=== PATIENT | female | born 1995 | race American Indian/Alaskan Native ===

== ENCOUNTER 2019-08-01 18:23 | Emergency (ER) | payer SELFPAY ==
--- NOTE | 2019-08-01 20:52 | Event Note ---
ED Screening Note Date of service: 08/01/19 Time: 20:47 ED Screening Note: Pt presents abscess to left axilla. She states it started as small bump over 1 week ago and since then it has gotten bigger and more painful and last night started draining. She is a Diabetic Insulin dependent. Denies fever. No hx of MRSA. This initial assessment/diagnostic orders/clinical plan/treatment(s) is/are subject to change based on patients health status, clinical progression and re- assessment by fellow clinical providers in the ED. Further treatment and workup at subsequent clinical providers discretion. Patient/guardian urged not to elope from the ED as their condition may be serious if not clinically assessed and managed. Initial orders include: CBC CMP Saline Lock I&D Wound culture
[2019-08-01 21:18] LABS: Basophils # (Auto) 0.1 K/mm3 (0.0-0.1); Basophils % (Auto) 0.8 % (0.0-1.8); Eosinophils # (Auto) 0.2 K/mm3 (0.0-0.4); Eosinophils % (Auto) 1.3 % (0.0-4.3); Hematocrit 34.4 % (30.3-42.9); Hemoglobin 10.7 gm/dl (10.1-14.3); Lymphocytes # (Auto) 2.6 K/mm3 (1.2-5.4); Lymphocytes % (Auto) 21.3 % (13.4-35.0); Mean Corpuscular HGB Conc 31 % (30-34); Mean Corpuscular Volume 72 fl (79-97); Monocytes # (Auto) 1.1 K/mm3 (0.0-0.8); Monocytes % (Auto) 9.2 % (0.0-7.3); Platelet Count 377 K/mm3 (140-440); Red Cell Distribution Width 16.1 % (13.2-15.2)
[2019-08-01 21:44] LABS: Alanine Aminotransferase 9 units/L (7-56); Albumin 3.5 g/dL (3.9-5); BUN/Creatinine Ratio 22; Blood Urea Nitrogen 11 mg/dL (7-17); Calcium 9.5 mg/dL (8.4-10.2); Hemolysis Index 17
[2019-08-01] MEDS ORDERED: LIDOCAINE-MPF (1%) 10 MG/1 ML VIAL 5 ML INFILTRATI ONE (22:16)
[2019-08-01] MEDS ORDERED: SULFAMETHOXAZOLE/TRIMETHOPRIM 800/160MG DS TAB PO ONE (22:16)
[2019-08-01] MEDS ORDERED: CLINDAMYCIN 300 MG CAP PO ONE (22:16)
[2019-08-01] MEDS ORDERED: IBUPROFEN 600 MG TAB PO ONE (22:16)
[2019-08-01] MEDS ORDERED: ONDANSETRON 4 MG ODT TAB PO ONE (22:16)
[2019-08-01] MEDS ORDERED: oxyCODONE /ACETAMINOPHEN 5-325MG TAB PO ONE (22:16)
--- NOTE | 2019-08-02 00:43 | Emergency Department Report ---
ED General Adult HPI - General Chief complaint: Skin/Abscess/Foreign Body Stated complaint: L ARM INFECTED Time Seen by Provider: 08/01/19 20:47 Source: patient Mode of arrival: Ambulatory Limitations: No Limitations - History of Present Illness Initial comments: The patient is a 24-year-old -[place] female with no past medical history who presents to the ED with complaint of acute onset persistent severely painful swollen erythematous maculopapular rash with fluctuance on the left axilla for the last 2 weeks. Patient states that the pain, redness and swelling got worse the last 2 days. Patient denies fever, chills, nausea, vomiting, diz ziness, headache, chest pain, shortness of breath, change in vision, abdominal pain, numbness and tingling of left or syncope. MD Complaint: left axilla swollen painful rash -: Sudden, week(s) (2) Location: left (axilla), upper extremity (left axilla) Radiation: non-radiation Severity scale (0 -10): 8 Quality: aching, sharp, constant Consistency: constant Improves with: none Worsens with: none Associated Symptoms: denies other symptoms. denies: chest pain, cough, diaphoresis, fever/chills, headaches, loss of appetite, malaise, nausea/vomiting, rash, seizure, shortness of breath, syncope, weakness Treatments Prior to Arrival: none - Related Data Previous Rx's Medication Instructions Recorded Last Taken Type Acetaminophen/Codeine [Tylenol 1 tab PO Q6H PRN #12 tab 08/02/19 Unknown Rx /Codeine # 3 tab] Clindamycin [Clindamycin CAP] 300 mg PO Q8HR #60 capsule 08/02/19 Unknown Rx Ibuprofen [Motrin] 800 mg PO Q8HR PRN #30 tablet 08/02/19 Unknown Rx Ondansetron [Zofran Odt] 4 mg PO Q6HR PRN #15 tab.rapdis 08/02/19 Unknown Rx Sulfamethoxazole/Trimethoprim 1 each PO Q12H #20 tablet 08/02/19 Unknown Rx [Bactrim DS TAB] Allergies Allergy/AdvReac Type Severity Reaction Status Date / Time Penicillins Allergy Unknown Verified 08/01/19 18:51 ED Review of Systems ROS: Stated complaint: L ARM INFECTED Other details as noted in HPI Constitutional: denies: chills, fever Eyes: denies: eye pain, eye discharge, vision change ENT: denies: ear pain, throat pain Respiratory: denies: cough, shortness of breath, wheezing Cardiovascular: denies: chest pain, palpitations Endocrine: no symptoms reported Gastrointestinal: denies: abdominal pain, nausea, diarrhea Genitourinary: denies: urgency, dysuria, discharge Musculoskeletal: arthralgia (left axilla and arm pain due to erythematous rash). denies: back pain, joint swelling Skin: rash (Swollen erythematous painful maculopapular fluctuant rash on left axilla). denies: lesions Neurological: denies: headache, weakness, paresthesias Psychiatric: denies: anxiety, depression Hematological/Lymphatic: denies: easy bleeding, easy bruising ED Past Medical Hx - Past Medical History Previous Medical History?: No - Surgical History Past Surgical History?: Yes Additional Surgical History: I&D - Social History Smoking Status: Never Smoker Substance Use Type: None - Medications Home Medications: Home Medications Medication Instructions Recorded Confirmed Last Taken Type Acetaminophen/Codeine [Tylenol 1 tab PO Q6H PRN #12 tab 08/02/19 Unknown Rx /Codeine # 3 tab] Clindamycin [Clindamycin CAP] 300 mg PO Q8HR #60 capsule 08/02/19 Unknown Rx Ibuprofen [Motrin] 800 mg PO Q8HR PRN #30 tablet 08/02/19 Unknown Rx Ondansetron [Zofran Odt] 4 mg PO Q6HR PRN #15 tab.rapdis 08/02/19 Unknown Rx Sulfamethoxazole/Trimethoprim 1 each PO Q12H #20 tablet 08/02/19 Unknown Rx [Bactrim DS TAB] ED Physical Exam - General Limitations: No Limitations General appearance: alert, in no apparent distress - Head Head exam: Present: atraumatic, normocephalic, normal inspection - Eye Eye exam: Present: normal appearance, PERRL, EOMI Pupils: Present: normal accommodation - ENT ENT exam: Present: normal exam, normal orophraynx, mucous membranes moist, TM's normal bilaterally, normal external ear exam - Neck Neck exam: Present: normal inspection, full ROM - Respiratory Respiratory exam: Present: normal lung sounds bilaterally. Absent: respiratory distress, wheezes, rales, rhonchi, chest wall tenderness, accessory muscle use, prolonged expiratory - Cardiovascular Cardiovascular Exam: Present: normal rhythm, tachycardia, normal heart sounds. Absent: systolic murmur, diastolic murmur, rubs, gallop - GI/Abdominal GI/Abdominal exam: Present: soft, normal bowel sounds. Absent: distended, tenderness, guarding, rebound, hyperactive bowel sounds, hypoactive bowel sounds, bruit, pulsatile mass - Extremities Exam Extremities exam: Present: normal inspection, full ROM, tenderness (left arm pain due to swollen tender erythematous maculopapular rash on left axilla), normal capillary refill - Back Exam Back exam: Present: normal inspection, full ROM. Absent: CVA tenderness (L), paraspinal tenderness, vertebral tenderness - Neurological Exam Neurological exam: Present: alert, oriented X3, CN II-XII intact, normal gait, reflexes normal - Psychiatric Psychiatric exam: Present: normal affect, normal mood - Skin Skin exam: Present: warm, dry, intact, normal color, rash (Swollen erythematous maculopapular severely tender fluctuant rash on left axilla), erythema ED Course Vital Signs 08/01/19 08/01/19 08/02/19 18:53 22:27 01:25 Temperature 98.6 F 98.3 F Pulse Rate 120 H 101 H Respiratory 16 18 18 Rate Blood Pressure 131/78 Blood Pressure 107/63 [Left] O2 Sat by Pulse 99 97 Oximetry - Reevaluation(s) Reevaluation #1: 08/02/19 00:45 Patient is a 24-year-old female who presented to the ED with painful swollen erythematous maculopapular fluctuant rash on left axilla for 2 weeks, worse the last 4 days. In the ED, patient is alert and oriented 3 and is not in distress however tachycardic in triage and appears to be in severe pain. Lab test results were reviewed and shows acute leukocytosis of 12,200 with hyperglycemia over 303 mg/dL. Patient was treated for pain in the ED also received initial oral antibiotics and ED. The left axilla swollen fluctuant rash was cleaned thoroughly and incised and drained per protocol. Patient tolerated the procedure well. The wound was debrided thoroughly and iodoform packing applied to the wound. The wound was then dressed appropriately and the patient was discharged home on pain medications and antibiotics. Patient is advised to return to the emergency Department in 2 days for wound recheck and packing material removal. Patient was otherwise advised to return to the ED immediately if symptoms get worse, otherwise follow-up with her primary care physician in 7-10 days for reevaluation. 08/02/19 00:49 - I & D Left Arm Type of Procedure: Simple Site: Left axilla Blade Size: 11 I & D Procedure: betadine prep, sterile drapes applied, sterile dressing applied, gauze wick placed Progress: Patient procedure well after the area was cleaned and local anesthetic applied. The wound was cleaned and debrided thoroughly and iodoform packing material applied. The wound was dressed appropriately and patient is sent home on pain medications and antibiotics and advised to follow up with her primary care physician in 7-10 days for reevaluation or return to the ED immediately if symptoms get worse. Patient was otherwise advised to return to the ED in 2 days for wound recheck and packing material removal. ED Medical Decision Making - Lab Data Result diagrams: 08/01/19 21:04 08/01/19 21:04 - Medical Decision Making Patient is a 24-year-old female who presented to the ED with painful swollen erythematous maculopapular fluctuant rash on left axilla for 2 weeks, worse the last 4 days. In the ED, patient is alert and oriented 3 and is not in distress however tachycardic in triage and appears to be in severe pain. Patient was treated for pain in the ED also received initial oral antibiotics and ED. lab tests results were reviewed and show acute leukocytosis of 12,200 and hyperglycemia 303 mg/dL. The left axilla swollen fluctuant rash was cleaned thoroughly and incised and drained per protocol. Patient tolerated the procedure well. The wound was debrided thoroughly and iodoform packing applied to the wound. The wound was then dressed appropriately and the patient was discharged home on pain medications and antibiotics. Patient is advised to return to the emergency Department in 2 days for wound recheck and packing material removal. The vital signs were rechecked and tachycardia resolved prior to patient being discharged. Patient was otherwise advised to return to the ED immediately if symptoms get worse, otherwise follow-up with her primary care physician in 7-10 days for reevaluation. - Differential Diagnosis Cutaneous abscess; Folliculitis; Cellulitis Critical care attestation.: If time is entered above; I have spent that time in minutes in the direct care of this critically ill patient, excluding procedure time. ED Disposition Clinical Impression: Cutaneous abscess of left axilla, Cellulitis of left axilla Disposition: TO HOME OR SELFCARE Is pt being admited?: No Does the pt Need Aspirin: No Condition: Stable Instructions: Cellulitis (ED), Folliculitis (ED), Abscess (ED) Additional Instructions: Take medications with food, drink plenty of fluids and follow-up with your primary care physician in 7-10 days for reevaluation. Return to the ED immediately if symptoms get worse. Otherwise return to the ED in 2 days for wound recheck and packing material removed. Prescriptions: Sulfamethoxazole/Trimethoprim [Bactrim DS TAB] 1 each PO Q12H #20 tablet Clindamycin [Clindamycin CAP] 300 mg PO Q8HR #60 capsule Ibuprofen [Motrin] 800 mg PO Q8HR PRN #30 tablet PRN Reason: Pain , Severe (7-10) Acetaminophen/Codeine [Tylenol /Codeine # 3 tab] 1 tab PO Q6H PRN #12 tab PRN Reason: Pain , Severe (7-10) Ondansetron [Zofran Odt] 4 mg PO Q6HR PRN #15 tab.rapdis PRN Reason: Nausea Referrals: PRIMARY CARE,MD [Primary Care Provider] - 3-5 Days Time of Disposition: 00:53 Print Language: GUATEMALAN
[2019-08-02 01:27] VITALS: BP 107/63
== END 2019-08-02 01:45 | disposition home or self-care (01) ==
LOC: ED 18:23
DX: L02.412 Cutaneous abscess of left axilla (principal); L03.112 Cellulitis of left axilla; Z79.899 Other long term (current) drug therapy; Z88.0 Allergy status to penicillin
CPT/HCPCS: 36415; 80053; 85025; Q0162

== ENCOUNTER 2019-08-04 16:16 | Emergency (ER) | payer SELFPAY ==
[2019-08-04 17:11] VITALS: BP 138/94
--- NOTE | 2019-08-04 19:00 | Emergency Department Report ---
- General Chief Complaint: Laceration/Recheck/Suture Stated Complaint: PACKING Time Seen by Provider: 08/04/19 18:54 Source: patient Mode of arrival: Ambulatory Limitations: No Limitations - History of Present Illness Initial Comments: pt is a 24 y/o aaf who presents for wound check , pt is s/p I&D Left axillary absces, there is no fever or chills no symptoms of infection. Onset/Timin -: days(s) Location: other (left axillary) Place: home Patient Tetanus UTD: Yes Associated Symptoms: pain - Related Data Previous Rx's Medication Instructions Recorded Last Taken Type Acetaminophen/Codeine [Tylenol 1 tab PO Q6H PRN #12 tab 08/02/19 Unknown Rx /Codeine # 3 tab] Clindamycin [Clindamycin CAP] 300 mg PO Q8HR #60 capsule 08/02/19 Unknown Rx Ibuprofen [Motrin] 800 mg PO Q8HR PRN #30 tablet 08/02/19 Unknown Rx Ondansetron [Zofran Odt] 4 mg PO Q6HR PRN #15 tab.rapdis 08/02/19 Unknown Rx Sulfamethoxazole/Trimethoprim 1 each PO Q12H #20 tablet 08/02/19 Unknown Rx [Bactrim DS TAB] Allergies Allergy/AdvReac Type Severity Reaction Status Date / Time Penicillins Allergy Unknown Verified 08/01/19 18:51 ED Review of Systems ROS: Stated complaint: PACKING Other details as noted in HPI Constitutional: denies: chills, fever Eyes: denies: eye pain, eye discharge, vision change ENT: denies: ear pain, throat pain Respiratory: denies: cough, shortness of breath, wheezing Cardiovascular: denies: chest pain, palpitations Endocrine: no symptoms reported Gastrointestinal: denies: abdominal pain, nausea, diarrhea Genitourinary: denies: urgency, dysuria, discharge Musculoskeletal: denies: back pain, joint swelling, arthralgia Skin: lesions (left axillay abscess site ). denies: rash Neurological: denies: headache, weakness, paresthesias Psychiatric: denies: anxiety, depression Hematological/Lymphatic: denies: easy bleeding, easy bruising ED Past Medical Hx - Past Medical History Previous Medical History?: No - Surgical History Past Surgical History?: No Additional Surgical History: I&D - Social History Smoking Status: Never Smoker Substance Use Type: None - Medications Home Medications: Home Medications Medication Instructions Recorded Confirmed Last Taken Type Acetaminophen/Codeine [Tylenol 1 tab PO Q6H PRN #12 tab 08/02/19 Unknown Rx /Codeine # 3 tab] Clindamycin [Clindamycin CAP] 300 mg PO Q8HR #60 capsule 08/02/19 Unknown Rx Ibuprofen [Motrin] 800 mg PO Q8HR PRN #30 tablet 08/02/19 Unknown Rx Ondansetron [Zofran Odt] 4 mg PO Q6HR PRN #15 tab.rapdis 08/02/19 Unknown Rx Sulfamethoxazole/Trimethoprim 1 each PO Q12H #20 tablet 08/02/19 Unknown Rx [Bactrim DS TAB] ED Physical Exam - General Limitations: No Limitations General appearance: alert, in no apparent distress - Head Head exam: Present: atraumatic, normocephalic - Eye Eye exam: Present: normal appearance, PERRL, EOMI Pupils: Present: normal accommodation - ENT ENT exam: Present: mucous membranes moist - Neck Neck exam: Present: normal inspection, full ROM. Absent: lymphadenopathy - Respiratory Respiratory exam: Present: normal lung sounds bilaterally. Absent: respiratory distress - Cardiovascular Cardiovascular Exam: Present: regular rate, normal rhythm. Absent: systolic murmur, diastolic murmur, rubs, gallop - GI/Abdominal GI/Abdominal exam: Present: soft, normal bowel sounds. Absent: distended, tenderness - Rectal Rectal exam: Present: deferred - Extremities Exam Extremities exam: Present: normal inspection, full ROM. Absent: tenderness - Back Exam Back exam: Present: normal inspection, full ROM. Absent: tenderness - Neurological Exam Neurological exam: Present: alert, oriented X3, CN II-XII intact, normal gait - Psychiatric Psychiatric exam: Present: normal affect, normal mood - Skin Skin exam: Present: warm, dry, normal color, other (abscess site no symptoms of infection no drainage no fever mild erythema ). Absent: rash ED Course Vital Signs 08/04/19 17:09 Temperature 98.9 F Pulse Rate 100 H Respiratory 18 Rate Blood Pressure 138/94 O2 Sat by Pulse 100 Oximetry ED Medical Decision Making - Medical Decision Making dressing changed no symptoms of infection, pt given wound care instructions, pt will follow up with pcp in 2-3 days and as needed, continue abx. Critical care attestation.: If time is entered above; I have spent that time in minutes in the direct care of this critically ill patient, excluding procedure time. ED Disposition Clinical Impression: Visit for wound check Disposition: TO HOME OR SELFCARE Is pt being admited?: No Does the pt Need Aspirin: No Condition: Stable Instructions: Incision and Drainage (ED) Referrals: [facility] [Outside] - 3-5 Days Forms: Work/School Release Form(ED) Time of Disposition: 19:01
== END 2019-08-04 19:00 | disposition left against medical advice (07) ==
LOC: ED 16:16
DX: L02.412 Cutaneous abscess of left axilla (principal); Z79.899 Other long term (current) drug therapy; Z88.0 Allergy status to penicillin

== ENCOUNTER 2019-09-16 09:24 | Emergency (ER) | payer SELFPAY ==
[2019-09-16 09:32] VITALS: BP 113/78
--- NOTE | 2019-09-16 10:52 | Emergency Department Report ---
- General Chief Complaint: Upper Respiratory Infection Stated Complaint: FLU LIKE SYMPTOMS Time Seen by Provider: 09/16/19 10:18 Source: patient Mode of arrival: Ambulatory Limitations: No Limitations - History of Present Illness Initial Comments: 24-year-old Afro-Mac[place] female with past medical history of diabetes is was department complaining of coryza and less symptoms for the last 1 week not responding to TheraFlu. She has coughed and congestion and coryza noted reports no hemoptysis, hematemesis nor hematochezia no hematuria or dysuria no abdominal pain or chest pain. States she's been out of her insulin for the last 2 or 3 days and has just relocated from [place] Complaint: cough, sore throat, rhinorrhea, nasal congestion -: Gradual, week(s) (1) Severity: mild Quality: dull Consistency: constant Worsens With: nothing Associated Symptoms: rhinorrhea, nasal congestion, cough. denies: myalgias, diaphoresis, chest pain, shortness of breath, right sweats, weight loss, epistaxis, hoarseness Treatments Prior to Arrival: none - Related Data Previous Rx's Medication Instructions Recorded Last Taken Type Acetaminophen/Codeine [Tylenol 1 tab PO Q6H PRN #12 tab 08/02/19 Unknown Rx /Codeine # 3 tab] Clindamycin [Clindamycin CAP] 300 mg PO Q8HR #60 capsule 08/02/19 Unknown Rx Ibuprofen [Motrin] 800 mg PO Q8HR PRN #30 tablet 08/02/19 Unknown Rx Ondansetron [Zofran Odt] 4 mg PO Q6HR PRN #15 tab.rapdis 08/02/19 Unknown Rx Sulfamethoxazole/Trimethoprim 1 each PO Q12H #20 tablet 08/02/19 Unknown Rx [Bactrim DS TAB] Azithromycin [Zithromax] 500 mg PO QDAY #3 tablet 09/16/19 Unknown Rx Insulin Glargine [Lantus VIAL] 10 unit SUB-Q QHS #10 ml 09/16/19 Unknown Rx guaiFENesin/CODEINE [Robitussin AC] 5 ml PO Q6H PRN #120 ml 09/16/19 Unknown Rx Allergies Allergy/AdvReac Type Severity Reaction Status Date / Time Penicillins Allergy Unknown Verified 08/01/19 18:51 ED Review of Systems ROS: Stated complaint: FLU LIKE SYMPTOMS Other details as noted in HPI Comment: All other systems reviewed and negative ED Past Medical Hx - Past Medical History Previous Medical History?: Yes Hx Diabetes: Yes Additional medical history: Boils - Surgical History Additional Surgical History: I&D - Social History Smoking Status: Never Smoker Substance Use Type: Non Opiate Pain, Prescribed - Medications Home Medications: Home Medications Medication Instructions Recorded Confirmed Last Taken Type Acetaminophen/Codeine [Tylenol 1 tab PO Q6H PRN #12 tab 08/02/19 Unknown Rx /Codeine # 3 tab] Clindamycin [Clindamycin CAP] 300 mg PO Q8HR #60 capsule 08/02/19 Unknown Rx Ibuprofen [Motrin] 800 mg PO Q8HR PRN #30 tablet 08/02/19 Unknown Rx Ondansetron [Zofran Odt] 4 mg PO Q6HR PRN #15 tab.rapdis 08/02/19 Unknown Rx Sulfamethoxazole/Trimethoprim 1 each PO Q12H #20 tablet 08/02/19 Unknown Rx [Bactrim DS TAB] Azithromycin [Zithromax] 500 mg PO QDAY #3 tablet 09/16/19 Unknown Rx Insulin Glargine [Lantus VIAL] 10 unit SUB-Q QHS #10 ml 09/16/19 Unknown Rx guaiFENesin/CODEINE [Robitussin AC] 5 ml PO Q6H PRN #120 ml 09/16/19 Unknown Rx ED Physical Exam - General Limitations: No Limitations General appearance: alert, in no apparent distress - Head Head exam: Present: atraumatic, normocephalic - Eye Eye exam: Present: normal appearance, PERRL, EOMI Pupils: Present: normal accommodation - ENT ENT exam: Present: normal exam, normal orophraynx, mucous membranes moist, TM's normal bilaterally - Neck Neck exam: Present: normal inspection, full ROM - Respiratory Respiratory exam: Present: normal lung sounds bilaterally. Absent: respiratory distress, wheezes, rales, rhonchi, chest wall tenderness, accessory muscle use, decreased breath sounds - Cardiovascular Cardiovascular Exam: Present: regular rate, normal rhythm. Absent: bradycardia, tachycardia, systolic murmur, diastolic murmur, rubs, gallop - GI/Abdominal GI/Abdominal exam: Present: soft, normal bowel sounds. Absent: tenderness, guarding, rebound, hyperactive bowel sounds, hypoactive bowel sounds, organomegaly, mass - Extremities Exam Extremities exam: Present: normal inspection, normal capillary refill - Back Exam Back exam: Present: normal inspection. Absent: CVA tenderness (R), CVA tenderness (L) - Neurological Exam Neurological exam: Present: alert, oriented X3, CN II-XII intact, normal gait, motor sensory deficit - Psychiatric Psychiatric exam: Present: normal affect, normal mood. Absent: anxious, flat affect, manic - Skin Skin exam: Present: warm, dry, intact, normal color. Absent: rash, cyanosis, diaphoretic, petechiae, pallor, abrasion ED Course Vital Signs 09/16/19 09:29 Temperature 98.9 F Pulse Rate 94 H Respiratory 20 Rate Blood Pressure 113/78 O2 Sat by Pulse 97 Oximetry Critical care attestation.: If time is entered above; I have spent that time in minutes in the direct care of this critically ill patient, excluding procedure time. ED Disposition Clinical Impression: Cough, Chest congestion, Coryza, Medication refill Disposition: TO HOME OR SELFCARE Is pt being admited?: No Does the pt Need Aspirin: No Condition: Stable Instructions: Diabetes Mellitus Type 2 in Adults (ED), Cold Symptoms (ED), Acute Cough (ED) Prescriptions: Insulin Glargine [Lantus VIAL] 10 unit SUB-Q QHS #10 ml guaiFENesin/CODEINE [Robitussin AC] 5 ml PO Q6H PRN #120 ml PRN Reason: Cough Azithromycin [Zithromax] 500 mg PO QDAY #3 tablet Referrals: PRIMARY CARE,MD [Primary Care Provider] - 3-5 Days
== END 2019-09-16 11:28 | disposition home or self-care (01) ==
LOC: ED 09:24
DX: J00 Acute nasopharyngitis [common cold] (principal); E11.9 Type 2 diabetes mellitus without complications; Z76.0 Encounter for issue of repeat prescription; Z79.899 Other long term (current) drug therapy; Z88.0 Allergy status to penicillin
CPT/HCPCS: 82962